=== PATIENT | male | born 1980 | race African-American/Black ===

== ENCOUNTER 2020-07-15 17:54 | Emergency (ER) | payer SELFPAY ==
[~2020-07-15] VITALS: Ht 182.8 cm; Wt 90.7 kg
[2020-07-15] MEDS ORDERED: LIDEX 0.05% CRE15 GM T ×2 (18:25→18:30)
[2020-07-15] MEDS ORDERED: PREDNISONE20 M1 PO (18:27)
== END 2020-07-15 18:35 | disposition home or self-care (01) ==
LOC: ED 17:54
DX: L25.9 Unspecified contact dermatitis, unspecified cause (principal); Z79.899 Other long term (current) drug therapy